=== PATIENT | female | born 1970 | race African-American/Black ===

== ENCOUNTER 2018-08-22 18:26 | Emergency (ER) | payer SELFPAY ==
[~2018-08-22] VITALS: Ht 175.3 cm; Wt 93.0 kg
[2018-08-22] MEDS ORDERED: IBUPROFEN 200 MG TAB PO STA (19:17)
[2018-08-22] MEDS ORDERED: ACETAMINOPHEN 325 MG TAB PO ONE (19:30)
[2018-08-22] MEDS ORDERED: ONDANSETRON HCL 4 MG ORAL DISINTEGRATING TAB PO ONE (19:30)
--- NOTE | 2018-08-22 20:18 | Diagnostic Imaging Report ---
EXAMINATION: Chest PA and lateral views INDICATION: Cough. Pain. ^[id number] ^[id number] COMPARISON: None FINDINGS: TUBES and LINES: None. LUNGS: Lungs are well inflated. Mild perihilar, peribronchial thickening and perihilar streaky densities may reflect viral infection versus reactive airway disease. Patchy density in the lower lobes suggestive of atelectasis. PLEURA: No pleural effusion or pneumothorax. HEART AND MEDIASTINUM: The cardiomediastinal silhouette is unremarkable. BONES AND SOFT TISSUES: No acute osseous lesion. Soft tissues are unremarkable. UPPER ABDOMEN: No free air under the diaphragm. IMPRESSION: Mild perihilar, peribronchial thickening and perihilar streaky densities may reflect viral infection versus reactive airway disease. No consolidation. Signed by: Dr. Kurtis Phipps M.D. on 08/22/2018 8:14 PM
== END 2018-08-22 20:24 | disposition home or self-care (01) ==
LOC: FSED 18:26
DX: R05 Cough (principal); R50.9 Fever, unspecified; J34.89 Other specified disorders of nose and nasal sinuses; M79.10 Myalgia, unspecified site
CPT/HCPCS: 71046; 87400; 99283; Q0162